=== PATIENT | male | born 2000 | race Caucasian/White ===

== ENCOUNTER 2018-03-06 17:54 | Emergency (ER) | payer OTHER ==
[~2018-03-06] VITALS: Ht 182.9 cm; Wt 86.6 kg
[2018-03-06 18:25] VITALS: BP 152/98
[2018-03-06] MEDS ORDERED: NAPROXEN 500 MG TABLET PO STA (18:45)
[2018-03-06] MEDS ORDERED: DIPHTH,PERTUSS(ACELL),TET TOX 0.5 ML DISP.SYRIN. VAX IM ONE (19:00)
--- NOTE | 2018-03-06 19:31 | PHYS DOC ---
Past Medical History Past Medical History: No Pertinent History Past Surgical History: Tonsillectomy Alcohol Use: None Drug Use: None Adult General Chief Complaint Chief Complaint: HAND PROBLEM HPI HPI Patient is a 17 year old male with no significant medical history who presents today complaining of mild left hand pain/wrist pain that began today after he fell on his left upper extremity playing basketball. Denies any loss of consciousness. Review of Systems Review of Systems Constitutional: Denies fever or chills []] Musculoskeletal: Reports right hand pain Integument: Denies rash or skin lesions [] Neurologic: Denies headache, focal weakness or sensory changes [] All other systems were reviewed and found to be within normal limits, except as documented in this note. Current Medications Current Medications Current Medications Medications (Trade) Dose Ordered Sig/Bebe Start Time Stop Time Status Last Admin Dose Admin Diphtheria/ Tetanus/Acell Pertussis (Boostrix) 0.5 ml ONCE ONCE 03/06/18 19:00 03/06/18 19:01 DC 03/06/18 18:58 0.5 ML Naproxen (Naprosyn) 500 mg 1X STAT 03/06/18 18:45 03/06/18 18:46 DC 03/06/18 18:57 500 MG Allergies Allergies Allergies Coded Allergies Type Severity Reaction Last Updated Verified azithromycin Allergy Mild 03/06/18 Yes Physical Exam Physical Exam Constitutional: Well developed, well nourished, no acute distress, non-toxic appearance. [] Back: No tenderness, no CVA tenderness. [] Extremities: Right upper extremity with no obvious deformity. Bruising noted on the knuckles and the lateral forearm distal end. Tenderness on palpation of the scaphoid. Full range of motion to the right hand and fingers. Adequate radial medial and ulnar sensation to the right hand. +2 right radial pulse. Cap refill less than 2 seconds the right upper extremity. Neurologic: Alert and oriented X 3, normal motor function, normal sensory function, no focal deficits noted. [] Psychologic: Affect normal, judgement normal, mood normal. [] Current Patient Data Vital Signs Vital Signs Date Time Temp Pulse Resp B/P (MAP) Pulse Ox O2 Delivery O2 Flow Rate FiO2 03/06/18 18:25 98.5 114 16 152/98 (116) 99 Room Air 98.5 EKG EKG [] Radiology/Procedures Radiology/Procedures [] Course & Med Decision Making Course & Med Decision Making Pertinent Labs and Imaging studies reviewed. (See chart for details) This is a 17-year-old male patient presented to the ED today with right hand pain/wrist pain after falling. Right hand x-rays were noted for scaphoid fracture. Patient was placed in a sugar tong splint by the ED RN, neurovascular exam is intact, ice elevation encouraged. Talked to patient about the importance of following up for this kind of injuries. Patient is willing to see the orthopedic doctor as an outpatient. Provided him doctor Binta's contact information, he will call the office tomorrow morning and set up a follow-up appointment. Dragon Disclaimer Dragon Disclaimer This electronic medical record was generated, in whole or in part, using a voice recognition dictation system. Departure Departure Impression: Primary Impression: Fall from standing Additional Impression: Fracture of scaphoid bone of hand Disposition: HOME, SELF-CARE Condition: STABLE Referrals: UNKNOWN PCP NAME (PCP) SERGIO ARBOLEDA MD call him tomorrow and set up a follow up appointment Patient Instructions: Fall Prevention and Home Safety, Scaphoid Fracture, Wrist Additional Instructions: You were evaluated in the emergency room and noted to have right scaphoid fracture. Ice elevate the extremity. Call the provided orthopedic doctor tomorrow morning and set up a follow-up appointment. Scripts Hydrocodone/Apap 5-325 (NORCO 5-325 TABLET) 1 Each Tablet 1 TAB PO Q4-6HRS PRN for PAIN, #20 TAB Prov: MORGAN JONES APRN 03/06/18 Problem Qualifiers Primary Impression: Fall from standing Encounter type: initial encounter Qualified Codes: W19.XXXA - Unspecified fall, initial encounter Additional Impression: Fracture of scaphoid bone of hand Encounter type: initial encounter Scaphoid bone location: middle third Fracture type: closed Fracture alignment: nondisplaced Laterality: right Qualified Codes: S62.024A - Nondisplaced fracture of middle third of navicular [scaphoid] bone of right wrist, initial encounter for closed fracture MORGAN JONES APRN Mar 06, 2018 19:31
[2018-03-06] MEDS ORDERED: HYDR-3164 PO (19:37)
--- NOTE | 2018-03-06 21:59 | RAD ---
Indication:Basketball injury TECHNIQUE: 3 views of left hand COMPARISON:None FINDINGS/ impression: Well-corticated bony fragment is seen in the base of the distal phalanx of the first finger at the level of interphalangeal joint most likely old avulsion fracture. Clinically correlate with focal tenderness. There is nondisplaced transverse fracture through the body of the scaphoid with surrounding edema. Electronically signed by: Nghia Torrez DO (03/06/2018 9:55 PM) [facility]
== END 2018-03-06 19:45 | disposition home or self-care (01) ==
LOC: ER 17:54
DX: S62.025A Nondisplaced fracture of middle third of navicular [scaphoid] bone of left wrist, initial encounter for closed fracture (principal); Z88.1 Allergy status to other antibiotic agents; W18.39XA Other fall on same level, initial encounter; Y93.67 Activity, basketball; Y92.89 Other specified places as the place of occurrence of the external cause; Y99.8 Other external cause status
CPT/HCPCS: 29125; 73130; 90471; 90715; 99284-25

== ENCOUNTER 2019-12-09 12:24 | Emergency (ER) | payer MEDICAID, OTHER ==
[~2019-12-09] VITALS: Ht 182.9 cm; Wt 105.4 kg
[~2019-12-09 12:24] MED LIST: HYDR-3164 PO
[2019-12-09 12:42] VITALS: BP 164/86
[2019-12-09] MEDS ORDERED: NAPROXEN 500 MG TABLET PO ONE (13:00)
--- NOTE | 2019-12-09 13:38 | RAD ---
PROCEDURE: FOOT LEFT 3V CLINICAL INDICATION / HISTORY: Reason: L foot pain and swelling x 1 week, no known injury / Spl. Instructions: / History: . TECHNIQUE: AP, lateral and oblique views of the left foot. COMPARISON: None FINDINGS: Nondisplaced acute distal third metatarsal transverse fracture. No dislocation is identified. The bone density is normal. The joint space widths are maintained, and there are no erosions to suggest an inflammatory arthropathy. Mild soft tissue swelling in the left forefoot noted. IMPRESSION: Acute distal third third metatarsal transverse fracture without displacement. Electronically signed by: Tanya Tompkins MD (12/09/2019 1:35 PM) [id number]
--- NOTE | 2019-12-09 14:09 | PHYS DOC ---
Past Medical History Past Medical History: No Pertinent History Past Surgical History: No Surgical History, Tonsillectomy Smoking Status: Never Smoker Alcohol Use: None Drug Use: None General Adult EDM: Chief Complaint: FOOT INJURY PAIN HPI: HPI: Patient is a 19 year old male, accompanied by his mother, who presents to the emergency department complaints of left foot swelling and pain for the last week. Patient denies any known injury. He states that his foot just proximal to his third toe has been painful for over a week. He currently rates pain about a 3 out of 10 on the pain scale unless the area is touched and the pain increases to 10 out of 10. Denies any radiation of the pain. Review of Systems: Review of Systems: Constitutional: Denies fever or chills. [] Musculoskeletal: See HPI Integument: Reports bruising to the left foot Neurologic: Denies headache, focal weakness or sensory changes. [] Psychiatric: Denies depression or anxiety. [] Complete ROS is negative unless otherwise stated in the HPI. Heart Score: Risk Factors: Risk Factors: DM, Current or recent (<one month) smoker, HTN, HLP, family history of CAD, obesity. Risk Scores: Score 0 - 3: 2.5% MACE over next 6 weeks - Discharge Home Score 4 - 6: 20.3% MACE over next 6 weeks - Admit for Clinical Observation Score 7 - 10: 72.7% MACE over next 6 weeks - Early Invasive Strategies Current Medications: Current Medications Medications (Trade) Dose Ordered Sig/Bebe Start Time Stop Time Status Last Admin Dose Admin Naproxen (Naprosyn) 500 mg 1X ONCE 12/09/19 13:00 12/09/19 13:01 DC 12/09/19 12:58 500 MG Allergies: Allergies: Allergies Coded Allergies Type Severity Reaction Last Updated Verified azithromycin Allergy Mild 03/06/18 Yes Physical Exam: PE: Constitutional: Well developed, well nourished, no acute distress, non-toxic appearance. [] HENT: Normocephalic, atraumatic, bilateral external ears normal, nose normal. [] Eyes: PERRLA, EOMI, conjunctiva normal, no discharge. [] Neck: Normal range of motion, no stridor. [] Cardiovascular:Heart rate regular rhythm Lungs & Thorax: Respirations even and unlabored, no retractions, no respiratory distress Skin: Warm, dry, no erythema, no rash. [] Extremities: Left foot: 3+ edema noted to left foot with bruising and tenderness over the third metatarsal, no obvious deformity, no crepitus, no cyanosis, PMS intact Neurologic: Alert and oriented X 3, no focal deficits noted. [] Psychologic: Affect normal, judgement normal, mood normal. [] Current Patient Data: Vital Signs: Vital Signs Date Time Temp Pulse Resp B/P (MAP) Pulse Ox O2 Delivery O2 Flow Rate FiO2 12/09/19 12:42 97.9 73 16 164/86 (112) 99 Room Air 97.9 EKG: EKG: [] Radiology/Procedures: Radiology/Procedures: PROCEDURE: FOOT LEFT 3V PROCEDURE: FOOT LEFT 3V CLINICAL INDICATION / HISTORY: Reason: L foot pain and swelling x 1 week, no known injury / Spl. Instructions: / History: . TECHNIQUE: AP, lateral and oblique views of the left foot. COMPARISON: None FINDINGS: Nondisplaced acute distal third metatarsal transverse fracture. No dislocation is identified. The bone density is normal. The joint space widths are maintained, and there are no erosions to suggest an inflammatory arthropathy. Mild soft tissue swelling in the left forefoot noted. IMPRESSION: Acute distal third third metatarsal transverse fracture without displacement. [] Course & Med Decision Making: Course & Med Decision Making Pertinent Labs and Imaging studies reviewed. (See chart for details) 1869- I spoke with Dr. Judd about the patient, will place pt in a CAM walker and encourage him to take Tylenol as needed for pain. Recommend ice, elevation, and activity as tolerated. Will provide Dr. Judd's information for follow up. [] Dragon Disclaimer: Dragon Disclaimer: This electronic medical record was generated, in whole or in part, using a voice recognition dictation system. Departure Departure Impression: Primary Impression: Metatarsal bone fracture Qualified Codes: S92.335A - Nondisplaced fracture of third metatarsal bone, left foot, initial encounter for closed fracture Disposition: 01 HOME, SELF-CARE Condition: STABLE Referrals: SERGIO JUDD MD Patient Instructions: Metatarsal Fracture, Undisplaced Additional Instructions: Take 1000 mg of Tylenol every 6 hours as needed for pain. Wear the walker boot that was provided in the emergency department. Activity as tolerated. Recommend application of ice, elevation, and rest of affected extremity. Follow-up with Dr. Judd's office, call to make an appointment. Return to the ER if your symptoms worsen. Justicifation of Admission Dx: Justifications for Admission: Justification of Admission Dx: N/A JESSICA ARZATE APRN Dec 09, 2019 14:09
== END 2019-12-09 14:57 | disposition home or self-care (01) ==
LOC: ER 12:24
DX: S92.332A Displaced fracture of third metatarsal bone, left foot, initial encounter for closed fracture (principal); R60.0 Localized edema; Z90.89 Acquired absence of other organs; X58.XXXA Exposure to other specified factors, initial encounter; Y93.89 Activity, other specified; Y92.89 Other specified places as the place of occurrence of the external cause; Y99.8 Other external cause status
CPT/HCPCS: 73630; 99283